=== PATIENT | female | born 1950 | race Caucasian/White ===

== ENCOUNTER → 2016-08-15 | Outpatient (CLI) | payer MEDICARE, BC | LOC: MC.RAD 10:20 | DX: Z12.31 Encounter for screening mammogram for malignant neoplasm of breast (principal) ==

== ENCOUNTER → 2017-10-12 | Outpatient (CLI) | payer MEDICARE, BC | LOC: MC.RAD 08:53 | DX: Z12.31 Encounter for screening mammogram for malignant neoplasm of breast (principal) ==

== ENCOUNTER → 2018-11-01 | Outpatient (CLI) | payer MEDICARE, BC | LOC: MC.RAD 07:20 | DX: Z12.31 Encounter for screening mammogram for malignant neoplasm of breast (principal) ==

== ENCOUNTER → 2019-12-10 | Outpatient (CLI) | payer MEDICARE, BC | LOC: MC.RAD 11:07 | DX: Z12.31 Encounter for screening mammogram for malignant neoplasm of breast (principal) ==

== ENCOUNTER → 2019-12-16 | Outpatient (CLI) | payer MEDICARE, BC | LOC: ZLAB.KSTAT 11:03 | DX: Z20.828 Contact with and (suspected) exposure to other viral communicable diseases (principal) ==

== ENCOUNTER 2020-10-29 07:15 | Emergency (ER) | payer MEDICARE, BC ==
[~2020-10-29] VITALS: Ht 149.9 cm; Wt 67.3 kg
[2020-10-29] MEDS ORDERED: SYNTHROID0.075 MG/T PO (07:40)
[2020-10-29] MEDS ORDERED: FLOVENT DI50 MCG/Act IH (07:41)
[2020-10-29] MEDS ORDERED: ALCLOMETASONE TP (07:41)
[2020-10-29] MEDS ORDERED: PHENERGAN W/CO120 M1 PO (07:43)
[2020-10-29] MEDS ORDERED: ESTRACE0.1 MG/GM VG (07:43)
[2020-10-29] MEDS ORDERED: SINGULAIR 110 MG/TAB PO (07:44)
[2020-10-29] MEDS ORDERED: PROAIR HFA0.09 MG/AC IH (07:44)
[2020-10-29] MEDS ORDERED: DYMISTA1 SPR NS (07:44)
[2020-10-29] MEDS ORDERED: PRILOSEC 20MG20 MG PO (07:44)
[2020-10-29 07:53] LABS: ALANINE AMINOTRANSFERASE 30 U/L (4-34); ALBUMIN 4.6 gm/dL (3.5-5.0); ALKALINE PHOSPHATASE 68 U/L (50-136); ANION GAP 9 mmol/L (7-16); AST,SGOT 42 U/L (15-37); BILIRUBIN,TOTAL 0.6 mg/dL (0.0-1.0); BLOOD UREA NITROGEN 9 mg/dL (7-17); CALCIUM 9.6 mg/dL (8.4-10.2); CARBON DIOXIDE 27 mmol/L (22-30); CHLORIDE 100 mmol/L (98-107); GLUCOSE 101 mg/dL (74-106); SODIUM 136 mmol/L (137-145); TOTAL PROTEIN 7.5 gm/dL (6.4-8.2)
[2020-10-29 07:58] LABS: BASO # 0.1 (0.0-0.2); BASO % 0.7 % (0.0-2.0); EOS # 0.1 (0.0-0.7); EOS % 1.9 % (0-4.0); GRAN # 3.6 (1.4-6.5); GRAN % 51.3 % (42.2-75.2); HEMATOCRIT 43.7 % (37.0-47.0); LYMPH # 2.6 (1.2-3.4); LYMPH % 37.4 % (20.0-51.0); MEAN CELL VOLUME 86 fl (80.0-100.0); MEAN CORPUSCULAR HEMOGLOBIN 29 pg (27.0-31.0); MEAN CORPUSCULAR HGB CONC 34 g/dl (33.0-37.0); MEAN PLATELET VOLUME 9.4 fl (7.4-10.4); MONO # 0.6 (0.1-0.6); MONO % 8.6 % (1.7-9.3); PLATELET COUNT 267 K/mm3 (130-400); RED BLOOD COUNT 5.11 M/mm3 (4.10-5.30); REDCELL DISTRIBUTION WIDTH-CV 12.8 % (11.5-14.5)
[2020-10-29 08:07] LABS: TROPONIN-I < 0.012 ng/mL (0.000-0.035)
[2020-10-29 10:01] VITALS: BP 124/66; PULSE 68
== END 2020-10-29 10:03 | disposition home or self-care (01) ==
LOC: COL.ER 07:15
PROVIDERS: Emergency Medicine
DX: R07.89 Other chest pain (principal); J45.909 Unspecified asthma, uncomplicated; K21.9 Gastro-esophageal reflux disease without esophagitis; Z79.899 Other long term (current) drug therapy

== ENCOUNTER 2020-12-23 09:24 | Day surgery (SDC) | payer MEDICARE, BC ==
[2020-12-23] VITALS (20 sets, daily range): BP systolic 100–132; BP diastolic 53–78; PULSE 55–78; TEMP 98.3
[~2020-12-23 09:24] MED LIST: ALCLOMETASONE TP; DYMISTA1 SPR NS; ESTRACE0.1 MG/GM VG; FLOVENT DI50 MCG/Act IH; PHENERGAN W/CO120 M1 PO; PRILOSEC 20MG20 MG PO; PROAIR HFA0.09 MG/AC IH; SINGULAIR 110 MG/TAB PO; SYNTHROID0.075 MG/T PO
--- NOTE | 2020-12-23 10:20 | NUR ---
PATIENT AMBULATED TO RM 10 WITH DAUGHTER. A&O X 3, LUNGS CTA, HEART SOUNDS REG. RADIAL/PEDAL PULSES EQUAL STRONG, NO ACUTE COMPLAINTS. IV STARTED 20 G TO R FA, 1ST ATTTEMPT.
[2020-12-23 10:27] LABS: HEMATOCRIT 40.3 % (37.0-47.0); HEMOGLOBIN 13.7 g/dl (12.5-16.0); MEAN CELL VOLUME 87 fl (80.0-100.0); MEAN CORPUSCULAR HEMOGLOBIN 30 pg (27.0-31.0); MEAN CORPUSCULAR HGB CONC 34 g/dl (33.0-37.0); MEAN PLATELET VOLUME 9.1 fl (7.4-10.4); PLATELET COUNT 226 K/mm3 (130-400); RED BLOOD COUNT 4.63 M/mm3 (4.10-5.30); REDCELL DISTRIBUTION WIDTH-CV 12.8 % (11.5-14.5)
[2020-12-23] MEDS ORDERED: TOPROL XL 25MG25 MG PO (10:33)
[2020-12-23] MEDS ORDERED: ASPIRIN 81M81 MG/TA2 PO (10:34)
[2020-12-23] MEDS ORDERED: POMEGRANATE WIT1 CAP PO (10:35)
[2020-12-23] MEDS ORDERED: CALCIUM 600 MG1 EAC2 PO (10:36)
[2020-12-23 10:37] LABS: CREATININE, serum 0.79 mg/dL (0.57-1.11); POTASSIUM 4.7 mmol/L (3.5-4.5)
[2020-12-23 10:38] LABS: PARTIAL THROMBOPLASTIN TIME 27.3 SECONDS (26.0-37.0)
[2020-12-23] MEDS ORDERED: FIBER GUMMIES2.5 GM PO (10:38)
[2020-12-23] MEDS ORDERED: CRANBERRY500 M3 PO (10:39)
[2020-12-23] MEDS ORDERED: GLUCOSAMINE & C1 CA2 PO (10:40)
[2020-12-23] MEDS ORDERED: LUTEIN20 M1 PO (10:40)
[2020-12-23] MEDS ORDERED: OMEGA-31 SGL PO (10:41)
[2020-12-23] MEDS ORDERED: PROBIOTIC BLEN1 EACH PO (10:43)
[2020-12-23] MEDS ORDERED: B COMPLEX #11 TA1 PO (10:44)
[2020-12-23] MEDS ORDERED: AIRBORNE ELDER1 EACH PO (10:45)
--- NOTE | 2020-12-23 11:41 | NUR ---
SEE MERGE FOR MEDICATION ADMINISTRATION TIMES/DOSAGES AND INTRA/POST SEDATION ASSESSMENT.
--- NOTE | 2020-12-23 12:20 | NUR ---
Patient back in room, TR band to right wrist in place, no pain, edema to area, no acute complaints, lunch ordered, daughter at bedside
--- NOTE | 2020-12-23 17:09 | NUR ---
AT 1452, 2 ML AIR REMOVED FROM WRISTBAND, WITH SMALL AMT OF BLEEDIG. 2 ML PLACED BACK IN, AT 1635, 2 ML REMOVED, AT 1645 2 ML REMOVED WITH SMALL AMT OF BLEEDING, REPLACED 2 ML CONTINUED TO WATCH.
--- NOTE | 2020-12-23 17:56 | NUR ---
Discharge instructions given by Rebecca Berry.All air released from band by this nurse,no bleeding observed.INT removed,catheter tip intact.Pt escorted out via wheelchair by this nurse.
== END 2020-12-23 17:57 ==
LOC: COL.CAR 09:24
PROVIDERS: Internal Medicine Cardiovascular Disease
DX: R07.89 Other chest pain (principal); R94.39 Abnormal result of other cardiovascular function study; E78.5 Hyperlipidemia, unspecified; E03.9 Hypothyroidism, unspecified; M19.90 Unspecified osteoarthritis, unspecified site; K21.9 Gastro-esophageal reflux disease without esophagitis; K58.9 Irritable bowel syndrome, unspecified; I34.0 Nonrheumatic mitral (valve) insufficiency; I77.819 Aortic ectasia, unspecified site; E88.81 Metabolic syndrome and other insulin resistance; M54.89 Other dorsalgia; E78.00 Pure hypercholesterolemia, unspecified; Z79.899 Other long term (current) drug therapy; Z79.890 Hormone replacement therapy; Z80.9 Family history of malignant neoplasm, unspecified
CPT/HCPCS: C1769; J1644; J2250; J3010; Q9967

== ENCOUNTER → 2021-01-21 | Outpatient (CLI) | payer MEDICARE, BC ==
[~2021-01-21] MED LIST changes: +AIRBORNE ELDER1 EACH PO; +ASPIRIN 81M81 MG/TA2 PO; +B COMPLEX #11 TA1 PO; +CALCIUM 600 MG1 EAC2 PO; +CRANBERRY500 M3 PO; +FIBER GUMMIES2.5 GM PO; +GLUCOSAMINE & C1 CA2 PO; +LUTEIN20 M1 PO; +OMEGA-31 SGL PO; +POMEGRANATE WIT1 CAP PO; +PROBIOTIC BLEN1 EACH PO; +TOPROL XL 25MG25 MG PO
== END ==
LOC: COL.RAD 07:33
DX: K76.89 Other specified diseases of liver (principal)

== ENCOUNTER → 2021-01-26 | Outpatient (CLI) | payer MEDICARE, BC | LOC: MC.RAD 15:44 | DX: Z12.31 Encounter for screening mammogram for malignant neoplasm of breast (principal) ==

== ENCOUNTER 2021-02-16 08:18 | Outpatient (CLI) | payer MEDICARE, BC ==
[2021-02-16] VITALS (7 sets, daily range): BP systolic 123–145; BP diastolic 54–76; PULSE 63–76
[~2021-02-16] VITALS: Ht 149.9 cm; Wt 63.0 kg
[2021-02-16] MEDS ORDERED: PREDNISONE20 MG PO (10:46)
[2021-02-16] MEDS ORDERED: BILBERRY EXTRAC80 MG PO (10:48)
[2021-02-16] MEDS ORDERED: FIBER GUMMIES2.5 GM PO (10:48)
[2021-02-16] MEDS ORDERED: VITAMINC1000TA PO (10:50)
[2021-02-16] MEDS ORDERED: FLONASEALLERGY NS (10:52)
[2021-02-16] MEDS ORDERED: XOPENEX HF0.045 MG/A IH (10:52)
[2021-02-16] MEDS ORDERED: FLOVENT DI250 MCG/Ac IH (10:53)
--- NOTE | 2021-02-16 11:45 | NUR ---
Pt tolerated infusion and 1 hr obs period without issue. INT DC'd with catheter intact. She was escorted out to ED entrance with steady gait.
== END 2021-02-16 11:45 | disposition home or self-care (01) ==
LOC: EUO 08:18
DX: U07.1 COVID-19 (principal)
CPT/HCPCS: M0245

== ENCOUNTER → 2021-03-26 | Outpatient (CLI) | payer MEDICARE, BC ==
[~2021-03-26] MED LIST changes: +BILBERRY EXTRAC80 MG PO; +FLONASEALLERGY NS; +FLOVENT DI250 MCG/Ac IH; +PREDNISONE20 MG PO; +VITAMINC1000TA PO; +XOPENEX HF0.045 MG/A IH
== END ==
LOC: COL.RAD 07:30
DX: K76.89 Other specified diseases of liver (principal)
CPT/HCPCS: Q9967

== ENCOUNTER → 2022-04-13 | Outpatient (CLI) | payer MEDICARE, BC | LOC: COL.PUL 09:25 | DX: R06.02 Shortness of breath (principal) | CPT/HCPCS: J7674 ==

== ENCOUNTER → 2022-06-10 | Outpatient (CLI) | payer MEDICARE, BC | LOC: COL.RAD 06:49 | DX: K21.9 Gastro-esophageal reflux disease without esophagitis (principal); K76.89 Other specified diseases of liver; N85.8 Other specified noninflammatory disorders of uterus; Z90.710 Acquired absence of both cervix and uterus | CPT/HCPCS: Q9967 ==

== ENCOUNTER → 2023-03-16 | Outpatient (CLI) | payer MEDICARE, BC | LOC: MC.RAD 11:03 | DX: Z12.31 Encounter for screening mammogram for malignant neoplasm of breast (principal) ==